=== PATIENT | female | born 1980 | race Two or more races ===

== ENCOUNTER 2018-12-13 02:41 | Emergency (ER) | payer OTHER ==
[~2018-12-13] VITALS: Ht 160 cm; Wt 54.9 kg
[2018-12-13] MEDS ORDERED: HYDROcodone/acetaminophen 5mg/325mg tablet PO ONE (03:10)
[2018-12-13] MEDS ORDERED: cyclobenzaprine 10mg tablet PO ONE (03:10)
[2018-12-13] MEDS ORDERED: ondansetron 4mg rapidly disintigrating tab PO ONE (03:10)
[2018-12-13] MEDS ORDERED: ketorolac trometh inj. 60 MG/2 ML VIAL IM ONE (03:10)
[2018-12-13] MEDS ORDERED: LIDOcaine 5% patch TP ONE (03:10)
--- NOTE | 2018-12-13 03:41 | NUR ---
PT ABLE TO AMBULATE TO RESTROOM, STATES "IT FEELS BETTER STANDING UPRIGHT".
[2018-12-13 04:02] LABS: CLARITY,URINE CLEAR (Clear); COLOR,URINE YELLOW (Yellow); GLUCOSE, URINE NEGATIVE (Neg); KETONES,URINE 40 mg/dl (Neg); LEUKOCYTE ESTERASE ,URINE NEGATIVE (Neg); NITRITES, URINE NEGATIVE (Neg); OCCULT BLOOD,URINE SMALL (Neg); PROTEIN,URINE TRACE mg/dl (Neg); UROBILINOGEN,URINE 0.2 E.U/dL (0.2-1.0)
[2018-12-13 04:04] LABS: URINE AMPHETAMINE SCREEN POSITIVE (Neg); URINE BARBITUATE SCREEN NEGATIVE (Neg); URINE BENZODIAZEPINES SCREEN POSITIVE (Neg); URINE CANNABINOID SCREEN NEGATIVE (Neg); URINE COCAINE SCREEN POSITIVE (Neg); URINE METHADONE SCREEN NEGATIVE (Neg); URINE OPIATE SCREEN NEGATIVE (Neg); URINE PHENCYCLIDINE SCREEN NEGATIVE (Neg)
[2018-12-13 04:09] LABS: UA COLLECTION TYPE CLN CATCH MIDSTREAM
[2018-12-13 04:10] LABS: BACTERIA,URINE FEW /HPF (Neg); RBC,URINE 0-2 /HPF (0-2); SQUAMOUS EPITHELIAL CELL,UR FEW /LPF (FEW); WBC,URINE 0-4 /HPF (0-4)
[2018-12-13 04:54] VITALS: BP 145/96
== END 2018-12-13 04:58 | disposition home or self-care (01) ==
LOC: ER 02:42
DX: M54.5 Low back pain (principal); G89.29 Other chronic pain
CPT/HCPCS: 80305; 81001; 96372; 99284; J1885